=== PATIENT | female | born 1950 | race Caucasian/White ===

== ENCOUNTER → 2018-09-30 16:20 | Emergency (ER) | payer MEDICARE, BC ==
[~2018-09-30 16:20] MED LIST: HYDROcodone/ACETAMIN 5-325 MG* 1 TAB PO ONE
[2018-09-30 18:20] VITALS: BP 127/74
--- NOTE | 2018-10-01 08:19 | ED ---
Upper Extremity Pain - HPI Summary HPI Summary: Patient is a 68-year-old female who presents to emergency department for a right wrist injury that occurred just prior to arrival. Patient states her and her are visiting family in the area and were hiking today when patient slipped on ice, fell backwards and landed onto her right hand. She denies head injury or loss of consciousness. No other injuries were sustained. Denies numbness or tingling to right arm. Patient has no significant past medical history. Symptoms are mild in severity. Moving right wrist makes symptoms worse. Nothing makes symptoms better. - History of Current Complaint Chief Complaint: EDExtremityUpper Stated Complaint: "I FELL AND INJURED MY WRIST" PER PT Time Seen by Provider: 09/30/18 17:00 Hx Obtained From: Patient - Allergies/Home Medications Allergies/Adverse Reactions: Allergies Allergy/AdvReac Type Severity Reaction Status Date / Time No Known Allergies Allergy Verified 09/30/18 16:32 Home Medications: Home Medications Aspirin EC TAB* [Ecotrin EC Low Dose 81 MG*] 81 mg PO DAILY 09/30/18 [History Confirmed 09/30/18] Metoprolol Succinate XL TAB* [Toprol XL TAB*] 25 mg PO DAILY 09/30/18 [History Confirmed 09/30/18] Montelukast Sodium TAB* [Singulair TAB*] 10 mg PO BEDTIME 09/30/18 [History Confirmed 09/30/18] Olopatadine 0.2% (NF) [Pataday 0.2% (NF)] 1 drop BOTH EYES BEDTIME 09/30/18 [ History Confirmed 09/30/18] Pravastatin (NF) [Pravachol (NF)] 20 mg PO 1700 09/30/18 [History Confirmed 04/12] PMH/Surg Hx/FS Hx/Imm Hx Previously Healthy: Yes Infectious Disease History: No Infectious Disease History: Denies: Traveled Outside the [place] in Last 30 Days - Family History Known Family History: Positive: Non-Contributory - Social History Occupation: Retired Lives: With Family Alcohol Use: Occasionally Substance Use Type: Reports: None Smoking Status (MU): Never Smoked Tobacco Review of Systems Positive: Other - right wrist pain Skin: Negative Negative: Weakness, Paresthesia, Numbness All Other Systems Reviewed And Are Negative: Yes Physical Exam Triage Information Reviewed: Yes Vital Signs On Initial Exam: Initial Vitals Temp Pulse Resp BP Pulse Ox 98.0 F 87 18 153/83 99 09/30/18 16:28 09/30/18 16:28 09/30/18 16:28 09/30/18 16:28 09/30/18 16:28 Vital Signs Reviewed: Yes Appearance: Positive: Pain Distress - Pt. sitting on bed holding right wrist. Nontoxic. present. Skin: Positive: Warm, Dry Head/Face: Positive: Normal Head/Face Inspection Eyes: Positive: Normal, EOMI Neck: Positive: Supple Musculoskeletal: Positive: Other - Good palpable right radial pulse. No breaks in skin. Mild deformity to right distal forearm. No proximal elbow or shoulder pain. No sensory deficits. Brisk capillary refill. Neurological: Positive: Normal, CN Intact II-III Psychiatric: Positive: Affect/Mood Appropriate Procedures - Splinting Right Upper Extremity Hand-Made Type: orthoglass Splint: sugar-tong Pre-Proc Neuro Vasc Exam: normal Post-Proc Neuro Vasc Exam: normal Diagnostics - Vital Signs Vital Signs Temp Pulse Resp BP Pulse Ox 09/30/18 18:20 97.9 F 65 16 127/74 98 09/30/18 16:28 98.0 F 87 18 153/83 99 - Laboratory Lab Statement: Any lab studies that have been ordered have been reviewed, and results considered in the medical decision making process. Course/Dx - Course Course Of Treatment: Patient presenting for an isolated right wrist injury after a mechanical fall. She is neurovascular intact. She was given 2 Lortab for pain. Wrist x-ray shows a distal comminuted impacted fracture with slight angulation of the radius and ulnar styloid process avulsion. Case was discussed with on-call orthopedics, Dr. Bradshaw, who recommended splinting at this time and close follow-up in office. Patient was placed in a sugar tong splint and sling. Prescription for Lortab sent to pharmacy. Patient states she will be in the area until . She was given information for orthopedic follow-up if the. Patient also was given a dose of images case she decides to call for follow-up. Advised to keep splint in place. Ice and elevate. Return to the ER if symptoms change or worsen. Patient has been understand and agree with plan. - Diagnoses Differential Diagnosis/HQI/PQRI: Positive: Contusion, Fracture (Closed), Strain , Sprain Provider Diagnoses: Fracture of ulna with radius, closed Discharge - Sign-Out/Discharge Documenting (check all that apply): Patient Departure Patient Received Moderate/Deep Sedation with Procedure: No - Discharge Plan Condition: Good Disposition: HOME Prescriptions: HYDROcodone/ACETAMIN 5-325 MG* [[place] 5-325 TAB*] 1 tab PO Q6H PRN #12 tab MDD 4 PRN Reason: Pain Patient Education Materials: Wrist Fracture in Adults (ED) Referrals: Samir Bradshaw MD [Medical Doctor] - Additional Instructions: Call Dr. Bradshaw's office Tuesday for an appointment Keep splint in place Ice and elevate Pain medication as directed Return to ER if symptoms change or worsen - Billing Disposition and Condition Condition: GOOD Disposition: Home
== END | disposition home or self-care (01) ==
LOC: ED 16:20
DX: S52.201A Unspecified fracture of shaft of right ulna, initial encounter for closed fracture (principal); S52.91XA Unspecified fracture of right forearm, initial encounter for closed fracture; M25.531 Pain in right wrist; W19.XXXA Unspecified fall, initial encounter; Y92.9 Unspecified place or not applicable
CPT/HCPCS: 99282